=== PATIENT | female | born 1950 | race Caucasian/White ===

== ENCOUNTER → 2018-01-21 | Outpatient (CLI) | payer MEDICARE ==
--- NOTE | 2018-01-21 11:58 | RAD ---
Examination: Ultrasound left breast History: History of felt a lump few days back. Does not feel any lump today. Comparison: None available Findings: In the left breast ,in the upper-outer region and axillary tail ,demonstrates no definite evidence of mass or lesion. Impression Benign findings. BI-RADS Category 2. Recommend clinical follow-up for this perceived mass. Recommend routine screening mammogram.
== END | disposition home or self-care (01) ==
LOC: US 11:03
PROVIDERS: ATTEND Family Medicine
DX: N63.20 Unspecified lump in the left breast, unspecified quadrant (principal); I10 Essential (primary) hypertension; I34.8 Other nonrheumatic mitral valve disorders; E78.01 Familial hypercholesterolemia; B37.2 Candidiasis of skin and nail
CPT/HCPCS: 76641

== ENCOUNTER → 2019-05-17 | Outpatient (CLI) | payer MEDICARE ==
[~2019-05-17] MED LIST: IOHEXOL 240 MG/ML 50ML VIAL. ONE; IOHEXOL 240 MG/ML 50ML VIAL. PO ONE; IOHEXOL 300 MG/ML 75 ML VIAL. IV ONE
[2019-05-17 09:49] LABS: BASO # 0.1 x10^3/uL (0.0-0.2); BASO % 1 % (0-3); EOS # 0.1 x10^3/uL (0.0-0.7); EOS % 2 % (0-3); HEMOGLOBIN 14.4 g/dL (12.0-15.5); LYMPH # 1.6 x10^3/uL (1.0-4.8); LYMPH % 21 % (24-48); MEAN CORPUSCULAR HEMOGLOBIN 31 pg (25-35); MEAN CORPUSCULAR HGB CONC 33 g/dL (31-37); MEAN CORPUSCULAR VOLUME 94 fL (79-100); MONO # 0.5 x10^3/uL (0.0-1.1); MONO % 6 % (0-9); NEUT # 5.6 x10^3uL (1.8-7.7); NEUT % 71 % (31-73); PLATELET COUNT 301 x10^3/uL (140-400); RED BLOOD COUNT 4.58 x10^6/uL (3.50-5.40); RED CELL DISTRIBUTION WIDTH 13.3 % (11.5-14.5); WHITE BLOOD COUNT 7.9 x10^3/uL (4.0-11.0)
[2019-05-17 10:01] LABS: CALCIUM 9.6 mg/dL (8.5-10.1); CREATININE 0.8 mg/dL (0.6-1.0); GFR 71.3; TOTAL BILIRUBIN 0.4 mg/dL (0.2-1.0); TOTAL PROTEIN 7.9 g/dL (6.4-8.2)
--- NOTE | 2019-05-17 11:08 | RAD ---
Examination: CT ABD PELV W/ORAL IV CONTRAST History: Right upper quadrant pain for the past 2 weeks. Colectomy in 2006 for ulcerative colitis. Comparison/Correlation: None Findings: Axial images of the abdomen and pelvis were obtained following IV and oral contrast. Sagittal and coronal reformatted images were provided. Minimal linear atelectasis involves the right middle lobe. Diffuse fatty infiltration liver is present. Within the left hepatic lobe segment 4, there is a 1.2 cm diameter hypervascular lesion. Hypervascular lesion within the right hepatic lobe inferiorly measuring 0.5 cm diameter is present on axial image 37 inferior to the gallbladder fossa. Calcified granuloma involves the spleen. Adrenal glands and kidneys are normal. Pancreas is normal. Distention of the duodenum with contrast is noted. Suture material is noted involving the distal bowel and at the anus. Large quantity of stool is present within the very distal bowel near the anus. No enlarged abdominal or pelvic lymph nodes. No ascites or pelvic free fluid. Uterus is unremarkable. Bladder is unremarkable. Bony structures are unremarkable. Impression: There are 2 hypervascular lesions involving the liver. These may represent hemangiomas. Correlate with prior exams if available to assess stability. If stability is unknown, follow-up MRI exam of the liver without and with contrast if able may be performed for more definitive assessment. Alternatively, ultrasound may be utilized. Marked fatty infiltration liver. No bowel obstruction or acute inflammatory process identified. PQRS Compliance Statement: One or more of the following individualized dose reduction techniques were utilized for this examination: 1. Automated exposure control 2. Adjustment of the mA and/or kV according to patient size 3. Use of iterative reconstruction technique Electronically signed by: Arnol Gonzales MD (05/17/2019 11:05 AM) [id number]
== END | disposition home or self-care (01) ==
LOC: CT 09:21
PROVIDERS: ATTEND Physician Assistant
DX: K76.89 Other specified diseases of liver (principal); K76.0 Fatty (change of) liver, not elsewhere classified; D73.89 Other diseases of spleen; J98.11 Atelectasis; Z87.891 Personal history of nicotine dependence
CPT/HCPCS: 36415; 74177; 80053; 82150; 83690; 85025; Q9966; Q9967

== ENCOUNTER → 2019-07-06 | Day surgery (SDC) | payer MEDICARE ==
[~2019-07-06] MED LIST changes: +ALBUTEROL SULFATE 2.5 MG/3 ML NEBU. NEB PRN; +ATOR20TA58 PO; +ATROPINE 0.5 MG/5 ML DISP.SYRIN. IV PRN; -IOHEXOL 240 MG/ML 50ML VIAL. ONE; -IOHEXOL 240 MG/ML 50ML VIAL. PO ONE; -IOHEXOL 300 MG/ML 75 ML VIAL. IV ONE; +IV RINGERS SOLUTION,LACTATED 1,000 ML IV SCH; +LOPE2CAP88 PO; +NALOXONE 0.4 MG/ML VIAL. IV PRN; +ONDANSETRON PF 4 MG/2 ML VIAL. IV PRN; +PROPOFOL 10,000 MCG/ML (20ML) VIAL IV ONE; +PSYL660P18 PO; +diphenhydrAMINE 50 MG/ML VIAL IV PRN
[2019-07-06 10:15] VITALS: BP 132/57
== END ==
LOC: SURG 08:17
PROVIDERS: ATTEND Internal Medicine Gastroenterology
DX: K25.9 Gastric ulcer, unspecified as acute or chronic, without hemorrhage or perforation (principal); K44.9 Diaphragmatic hernia without obstruction or gangrene; K22.2 Esophageal obstruction; K31.9 Disease of stomach and duodenum, unspecified; E78.00 Pure hypercholesterolemia, unspecified; F32.9 Major depressive disorder, single episode, unspecified; F17.210 Nicotine dependence, cigarettes, uncomplicated; Z90.49 Acquired absence of other specified parts of digestive tract; Z98.890 Other specified postprocedural states; Z72.89 Other problems related to lifestyle
CPT/HCPCS: 43239; J2704; J7120

== ENCOUNTER → 2020-07-12 | Outpatient (CLI) | payer MEDICARE ==
[2019-07-06 10:15] VITALS: BP 132/57
[~2020-07-12] MED LIST changes: -ALBUTEROL SULFATE 2.5 MG/3 ML NEBU. NEB PRN; -ATROPINE 0.5 MG/5 ML DISP.SYRIN. IV PRN; -IV RINGERS SOLUTION,LACTATED 1,000 ML IV SCH; +LOPE-101 PO; -LOPE2CAP88 PO; -NALOXONE 0.4 MG/ML VIAL. IV PRN; -ONDANSETRON PF 4 MG/2 ML VIAL. IV PRN; -PROPOFOL 10,000 MCG/ML (20ML) VIAL IV ONE; -diphenhydrAMINE 50 MG/ML VIAL IV PRN
--- NOTE | 2020-07-12 14:10 | RAD ---
EXAM: CT ABDOMEN/PELVIS WITHOUT CONTRAST. HISTORY: Right lower quadrant pain, ulcerative colitis status post colon resection. TECHNIQUE: Computed tomography of the abdomen and pelvis was performed without intravenous contrast. One or more of the following individualized dose reduction techniques were utilized for this examination: 1. Automated exposure control. 2. Adjustment of the mA and/or kV according to patient size. 3. Use of iterative reconstruction technique. COMPARISON: 05/17/2019. FINDINGS: Lung windows through the visualized portions of the bases reveal mild atelectasis. Bone windows reveal no suspicious lesions. Subchondral sclerosis along the right femoral head is consistent with avascular necrosis. There is articular surface collapse. The gallbladder is decompressed but otherwise unremarkable. There is a calcified granuloma in the spleen. Diffuse hepatic steatosis appears improved since the prior study. The adrenal glands and kidneys are unremarkable. The pancreatic duct is at the upper limits of normal caliber. No pancreatic parenchymal lesions are seen. The common duct is mildly dilated at 10 mm. There is no cause for distal obstruction. There are changes of total colectomy with ileal J pouch placement. Another anastomotic suture line is noted along a small bowel loop in the right lower quadrant. There is no small bowel obstruction. There are no pathologically enlarged lymph nodes. IMPRESSION: 1. The common duct is mildly dilated at 10 mm. The pancreatic duct is at the upper limits of normal caliber. These findings appear stable and no cause for distal obstruction is identified. Correlate for cholestasis to assess significance. 2. Status post total colectomy with ileal J pouch placement. No cause for acute pain is identified. Electronically signed by: Victor Manuel Macedo MD (07/12/2020 2:07 PM) [id number]
== END | disposition home or self-care (01) ==
LOC: CT 10:55
PROVIDERS: ATTEND Nurse Practitioner Adult Health
DX: R10.31 Right lower quadrant pain (principal); J98.11 Atelectasis; K76.0 Fatty (change of) liver, not elsewhere classified; Z90.49 Acquired absence of other specified parts of digestive tract
CPT/HCPCS: 74176